=== PATIENT | male | born 2000 | race Caucasian/White ===

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

== ENCOUNTER 2022-04-13 16:02 | Emergency (ER) | payer MEDICARE, MEDICAID ==
[~2022-04-13] VITALS: Ht 175.3 cm; Wt 104.5 kg
[2022-04-13 18:05] VITALS: BP 147/92; PULSE 118; TEMP 100
== END 2022-04-13 18:05 | disposition home or self-care (01) ==
LOC: COL.ER 16:02
DX: G40.909 Epilepsy, unspecified, not intractable, without status epilepticus (principal); Z20.822 Contact with and (suspected) exposure to COVID-19; Z28.310 Unvaccinated for COVID-19